=== PATIENT | male | born 1985 ===

== ENCOUNTER 2017-03-10 07:20 | Emergency (ER) | payer OTHER ==
[2017-03-10 07:31] VITALS: BMI 30.9
[2017-03-10 07:32] VITALS: BP 125/73; PULSE 59; RESP 20; TEMP 97.7; O2SAT 98
[2017-03-10] MEDS ORDERED: Naproxen 500 MG TAB PO STA (07:50)
--- NOTE | 2017-03-10 07:50 | ED PDOC ---
HPI: Headache Time Seen by Provider: 03/10/17 07:47 Chief Complaint (Nursing): Headache Chief Complaint (Provider): headache History Per: Patient History/Exam Limitations: no limitations Additional Complaint(s): 31yo male complaining of bilateral headache for several days, worse since yesterday. Denies Hx migraines, hypertension, diabetes. No dizziness, blurred vision, double vision, fever, head injuries, falls, other trauma, other complaints. Past Medical History Reviewed: Historical Data, Nursing Documentation, Vital Signs Vital Signs: Last Vital Signs Temp 97.7 F 03/10/17 07:32 Pulse 59 L 03/10/17 07:32 Resp 20 03/10/17 07:32 BP 125/73 03/10/17 07:32 Pulse Ox 98 03/10/17 07:38 - Medical History PMH: Denies: Diabetes, HTN, Migraine - Surgical History Surgical History: No Surg Hx - Family History Family History: States: Unknown Family Hx - Home Medications Home Medications: Ambulatory Orders Medication Instructions Recorded Naproxen [Naprosyn] 500 mg PO Q12H #20 tab 03/10/17 - Allergies Allergies/Adverse Reactions: Allergies Allergy/AdvReac Type Severity Reaction Status Date / Time No Known Allergies Allergy Verified 03/10/17 07:38 Review of Systems ROS Statement: Except As Marked, All Systems Reviewed And Found Negative Constitutional: Negative for: Fever Eyes: Negative for: Vision Change Neurological: Positive for: Headache. Negative for: Dizziness Physical Exam - Reviewed Nursing Documentation Reviewed: Yes Vital Signs Reviewed: Yes - Physical Exam Appears: Positive for: Well, Non-toxic, No Acute Distress Head Exam: Positive for: ATRAUMATIC, NORMAL INSPECTION, NORMOCEPHALIC Skin: Positive for: Warm, Dry Eye Exam: Positive for: EOMI, PERRL Cardiovascular/Chest: Positive for: Regular Rate, Rhythm Respiratory: Positive for: Normal Breath Sounds. Negative for: Rales, Rhonchi, Wheezing Extremity: Positive for: Normal ROM Neurologic/Psych: Positive for: Alert, Oriented (x3). Negative for: Motor/ Sensory Deficits - ECG O2 Sat by Pulse Oximetry: 98 (RA) Pulse Ox Interpretation: Normal Medical Decision Making Medical Decision Makin: CT Head w/o, Naprosyn ordered. Disposition - Clinical Impression Clinical Impression: Headache - Patient ED Disposition Is Patient to be Admitted: No Counseled Patient/Family Regarding: Studies Performed, Diagnosis, Need For Followup, Rx Given - Disposition Referrals: [facility] [Outside] Disposition: Routine/Home Disposition Time: 09:09 Condition: FAIR Prescriptions: Naproxen [Naprosyn] 500 mg PO Q12H #20 tab Instructions: General Headache (ED) Additional Comments - Additional Comments Additional Comments: Scribe Attestation: Documented by Darrell Rapp acting as a scribe for Caleb Cuadra MD. Provider Scribe Attestation: All medical record entries made by the Scribe were at my direction and personally dictated by me. I have reviewed the chart and agree that the record accurately reflects my personal performance of the history, physical exam, medical decision making, and the department course for this patient. I have also personally directed, reviewed, and agree with the discharge instructions and disposition.
[2017-03-10] MEDS ORDERED: Naproxen 500 MG TAB PO ONE (07:52)
--- NOTE | 2017-03-10 09:03 | CT ---
PROCEDURE: CT HEAD WITHOUT CONTRAST. HISTORY: r/o bleed COMPARISON: None available. TECHNIQUE: Axial computed tomography images were obtained through the head/brain without intravenous contrast. Radiation dose: Total exam DLP = 859.38 mGy-cm. This CT exam was performed using one or more of the following dose reduction techniques: Automated exposure control, adjustment of the mA and/or kV according to patient size, and/or use of iterative reconstruction technique. FINDINGS: HEMORRHAGE: No intracranial hemorrhage. BRAIN: No mass effect or edema. No atrophy or chronic microvascular ischemic changes. VENTRICLES: Unremarkable. No hydrocephalus. CALVARIUM: Unremarkable. PARANASAL SINUSES: Unremarkable as visualized. No significant inflammatory changes. MASTOID AIR CELLS: Unremarkable as visualized. No inflammatory changes. OTHER FINDINGS: Mild soft tissue induration/ skin thickening involving the occipital scalp. IMPRESSION: No CT evidence of acute intracranial hemorrhage or acute territorial infarct. Acute infarction may be CT occult within first 24 hours. If a focal deficit persists, consider followup CT or MRI for further evaluation. Findings as above.
== END 2017-03-10 09:20 | disposition home or self-care (01) ==
LOC: H.ER 07:20
DX: R51 Headache (principal)

== ENCOUNTER 2018-01-19 13:11 | Emergency (ER) | payer SELFPAY ==
[2018-01-19 13:43] VITALS: BMI 33.1
[2018-01-19 13:45] VITALS: BP 113/77; PULSE 60; RESP 16; TEMP 97.8; O2SAT 98
--- NOTE | 2018-01-19 14:30 | ED PDOC ---
HPI: Back Time Seen by Provider: 01/19/18 13:54 Chief Complaint (Nursing): Lower Extremity Problem/Injury Chief Complaint (Provider): Back pain History Per: Patient History/Exam Limitations: no limitations Onset/Duration Of Symptoms: Days (x3) Current Symptoms Are (Timing): Still Present Quality Of Discomfort: "Pain" Associated Symptoms: None Additional Complaint(s): Nicholas Garcia is a 32 year old male, with no significant past medical history , who presents to the emergency department complaining of atraumatic left lower back pain that radiates to the right posterior aspect of the left leg onset for x3 days. Patient did not take any medication for symptoms. He denies any abdominal pain, urinary symptoms, paresthesias, weakness, acute bowel or bladder dysfunction, fever or chills. No further medical complaints. PMD: None provided. Past Medical History Reviewed: Historical Data, Nursing Documentation, Vital Signs Vital Signs: Last Vital Signs Temp 97.8 F 01/19/18 13:43 Pulse 60 01/19/18 13:43 Resp 16 01/19/18 13:43 BP 113/77 01/19/18 13:43 Pulse Ox 98 01/19/18 13:43 - Medical History PMH: No Chronic Diseases Denies: Diabetes, HTN, Migraine - Surgical History Surgical History: No Surg Hx - Family History Family History: States: Unknown Family Hx - Social History Current smoker - smoking cessation education provided: Yes (light smoker <10 cigarettes daily) Alcohol: Social Drugs: Denies - Home Medications Home Medications: Ambulatory Orders Medication Instructions Recorded Naproxen [Naprosyn] 500 mg PO Q12H #20 tab 03/10/17 Cyclobenzaprine [Cyclobenzaprine 10 mg PO TID PRN #15 tab 01/19/18 HCl] Meloxicam [Mobic] 15 mg PO DAILY PRN #30 tab 01/19/18 - Allergies Allergies/Adverse Reactions: Allergies Allergy/AdvReac Type Severity Reaction Status Date / Time No Known Allergies Allergy Verified 03/10/17 07:38 Review of Systems ROS Statement: Except As Marked, All Systems Reviewed And Found Negative Constitutional: Negative for: Fever, Chills Gastrointestinal: Negative for: Abdominal Pain, Constipation Genitourinary Male: Negative for: Dysuria, Frequency, Incontinence Musculoskeletal: Positive for: Back Pain (radiates down the right posterior left leg. ), Leg Pain (left ) Neurological: Negative for: Weakness Physical Exam - Reviewed Nursing Documentation Reviewed: Yes Vital Signs Reviewed: Yes - Physical Exam Comments: GENERAL APPEARANCE: Patient is awake, alert, oriented x 3, in no acute distress. Patient ambulatory in the ER. SKIN: Warm, dry; (-) cyanosis. EYES: (-) conjunctival pallor. ENMT: Mucous membranes moist. NECK: (-) tenderness, (-) stiffness, (-) lymphadenopathy. CHEST AND RESPIRATORY: (-) rales, (-) rhonchi, (-) wheezes; breath sounds equal bilaterally. HEART AND CARDIOVASCULAR: (-) irregularity; (-) murmur, (-) gallop. ABDOMEN AND GI: Soft; (-) tenderness; (-) palpable mass. BACK: (+) mild spasm, (-) direct bony tenderness, (-) deformity. Straight leg raising (-) bilaterally. EXTREMITIES: (-) deformity. Distal pulses good bilaterally. NEURO AND PSYCH: Mental status as above. Intact sensation bilaterally; normal strength in extension of the knees, plantar and dorsiflexion of the toes. DTRs symmetric. - ECG O2 Sat by Pulse Oximetry: 98 (RA) Pulse Ox Interpretation: Normal Medical Decision Making Medical Decision Making: Initial Impression: Sciatica --Diagnosis of sciatica, discussed with patient regarding diagnosis. Advised to follow up with clinic in 1-2 days without fail. Advised to take medication as prescribed. Return to the emergency room at any time for any new or worsening symptoms. Patient states he fully agrees with and understands discharge instructions. States that he agrees with the plan and disposition. Verbalized and repeated discharge instructions and plan. I have given the patient opportunity to ask any additional questions. ~ Scribe Attestation: Documented by Justin Jose, acting as a scribe for Giselle L Hughes, PA-C. Provider Scribe Attestation: All medical record entries made by the Scribe were at my direction and personally dictated by me. I have reviewed the chart and agree that the record accurately reflects my personal performance of the history, physical exam, medical decision making, and the department course for this patient. I have also personally directed, reviewed, and agree with the discharge instructions and disposition. Disposition - Clinical Impression Clinical Impression: Sciatica - Patient ED Disposition Is Patient to be Admitted: No Counseled Patient/Family Regarding: Diagnosis, Need For Followup, Rx Given - Disposition Referrals: [facility] [Outside] Disposition: Routine/Home Disposition Time: 14:00 Condition: STABLE Additional Instructions: Thank you for letting us take care of you today. You were treated for sciatica. The emergency medical care you received today was directed at your acute symptoms. If you were prescribed any medication, please fill it and take as directed. It may take several days for your symptoms to resolve. Return to the Emergency Department if your symptoms worsen, do not improve, or if you have any other problems. Please call one of the physicians/clinics you have been referred to that are listed on the Patient Visit Information form that is included in your discharge packet. Bring any paperwork you were given at discharge with you along with any medications you are taking to your follow up visit. Our treatment cannot replace ongoing medical care by a primary care provider (PCP) outside of the emergency department. Thank you for allowing the [facility] team to be part of your care today. Prescriptions: Cyclobenzaprine [Cyclobenzaprine HCl] 10 mg PO TID PRN #15 tab PRN Reason: Muscle Spasm Meloxicam [Mobic] 15 mg PO DAILY PRN #30 tab PRN Reason: Pain, Moderate (4-7) Instructions: Sciatica (DC) Forms: [employer] (N[place]ien), [facility] ED School/Work Excuse Print Language: CHILEAN
== END 2018-01-19 14:21 | disposition home or self-care (01) ==
LOC: H.ER 13:11
DX: M54.32 Sciatica, left side (principal)

== ENCOUNTER 2018-08-27 08:41 | Emergency (ER) | payer OTHER, SELFPAY ==
[2018-08-27 08:41] VITALS: BMI 33.1
[2018-08-27 08:52] VITALS: BP 142/69; PULSE 63; RESP 16; TEMP 98.1; O2SAT 99
--- NOTE | 2018-08-27 09:27 | ED PDOC ---
Lower Extremity Pain/Injury Time Seen by Provider: 08/27/18 09:07 Chief Complaint (Nursing): Lower Extremity Problem/Injury History Per: Patient Onset/Duration Of Symptoms: Days (2) Severity: Mild Pain Scale Rating Of: 3 Additional Complaint(s): Burning type pain knees bilat x 2 days. No injury. Plays soccer. Past Medical History Vital Signs: Last Vital Signs Temp 98.1 F 08/27/18 08:50 Pulse 63 08/27/18 08:50 Resp 16 08/27/18 08:50 BP 142/69 08/27/18 08:50 Pulse Ox 99 08/27/18 08:50 - Medical History PMH: No Chronic Diseases Denies: Diabetes, HTN, Migraine - Family History Family History: States: Unknown Family Hx - Home Medications Home Medications: Ambulatory Orders Medication Instructions Recorded Naproxen [Naprosyn] 500 mg PO Q12H #20 tab 03/10/17 Cyclobenzaprine [Cyclobenzaprine 10 mg PO TID PRN #15 tab 01/19/18 HCl] Meloxicam [Mobic] 15 mg PO DAILY PRN #30 tab 01/19/18 Naproxen [Naprosyn] 500 mg PO Q12H #20 tab 08/27/18 - Allergies Allergies/Adverse Reactions: Allergies Allergy/AdvReac Type Severity Reaction Status Date / Time No Known Allergies Allergy Verified 03/10/17 07:38 Review of Systems Constitutional: Negative for: Fever Musculoskeletal: Positive for: Other (Knee pain) Physical Exam - Physical Exam Appears: Positive for: Non-toxic, No Acute Distress Skin: Positive for: Normal Color, Warm, DRY Extremity: Positive for: Normal ROM. Negative for: Tenderness, Deformity, Swelling - ECG O2 Sat by Pulse Oximetry: 99 Disposition - Clinical Impression Clinical Impression: Knee pain - Patient ED Disposition Is Patient to be Admitted: No Counseled Patient/Family Regarding: Studies Performed, Diagnosis, Need For Followup, Rx Given - Disposition Referrals: [facility] [place] [Outside] [facility] [place] [Outside] Disposition: Routine/Home Disposition Time: 09:27 Condition: FAIR Prescriptions: Naproxen [Naprosyn] 500 mg PO Q12H #20 tab Instructions: Knee Pain (DC) Print Language: DIVEHI
--- NOTE | 2018-08-27 10:38 | RAD ---
Date of service: 08/27/2018 PROCEDURE: Bilateral Knee Radiographs. HISTORY: pain COMPARISON: None. FINDINGS: BONES: No acute fracture or destructive bony lesion identified, bilateral knees. JOINTS: Right Knee: Normal. No osteoarthritis. Left knee: Normal. No osteoarthritis. SOFT TISSUES: Right Knee: Normal. Left Knee: Normal. JOINT EFFUSION: Right Knee: None. Left Knee: None. OTHER FINDINGS: None. IMPRESSION: No acute fracture dislocation bilateral knees. Local soft tissues appear diffusely unremarkable.
== END 2018-08-27 09:35 | disposition home or self-care (01) ==
LOC: H.ER 08:41
DX: M25.561 Pain in right knee (principal); M25.562 Pain in left knee